=== PATIENT | female | born 1975 | race Caucasian/White ===

== ENCOUNTER 2019-03-30 17:23 | Outpatient (REF) | payer BC, SELFPAY ==
[2019-03-30 19:37] LABS: Calculated LDL 144 mg/dL; Cholesterol 199 mg/dL (50-200); Glucose 81 mg/dL (70-100); HDL Cholesterol 45 mg/dL (40-60); TSH 2.65 uIU/mL (0.36-3.74); Triglyceride 52 mg/dL (30-150)
== END 2019-03-30 17:43 ==
LOC: NCHCN 17:23
PROVIDERS: PCP Internal Medicine; Visit Provider Internal Medicine
DX: Z00.00 Encounter for general adult medical examination without abnormal findings (principal); E06.3 Autoimmune thyroiditis; E04.2 Nontoxic multinodular goiter
CPT/HCPCS: 80061; 82947; 84443

== ENCOUNTER 2020-09-16 16:26 | Outpatient (REF) | payer BC, SELFPAY ==
[2020-09-16 19:16] LABS: Glucose 77 mg/dL (74-106); TSH 1.79 uIU/mL (0.36-3.74)
== END 2020-09-16 16:27 | disposition home or self-care (01) ==
LOC: NCHCN 16:26
PROVIDERS: PCP Internal Medicine; Visit Provider Internal Medicine
DX: Z00.00 Encounter for general adult medical examination without abnormal findings (principal); E04.2 Nontoxic multinodular goiter; E66.3 Overweight
CPT/HCPCS: 82947; 84443

== ENCOUNTER 2020-10-30 13:37 | Outpatient (REF) | payer BC, SELFPAY ==
--- NOTE | 2020-10-30 13:20 | PAPFT_PTH ---
PATIENT: Francine Becerril LOC: [facility]#:[id number] AGE/SX: 45/F ROOM: RE10/30/[address]: Anca Martin : 1975 BED: DIS: 10/30/2020 SPEC #: [id number] RECD: 10/31/20 12:57 STATUS: SCHUYLER RECaitie #: [id number] PATRICK: 10/30/20 13:[address]: Anca Martin DEPT: [facility] Cytology RECD BY: Nayeli Ko ENTERED: 10/31/20 12:57 SP TYPE: PAPFT OTHR DR: Jonn Burt Tissues: 1 - CX/ENDOCX FOR PAP SMEARS Procedures: PAP THIN PREP/UVM Screening HPV DNA PROBE Comments: [id number]
== END 2020-10-30 13:38 | disposition home or self-care (01) ==
LOC: NCHCN 13:37
PROVIDERS: PCP Internal Medicine; Visit Provider Physician Assistant
DX: Z12.4 Encounter for screening for malignant neoplasm of cervix (principal); Z01.419 Encounter for gynecological examination (general) (routine) without abnormal findings; Z11.51 Encounter for screening for human papillomavirus (HPV)
CPT/HCPCS: 88142; 87624

== ENCOUNTER 2021-09-23 16:19 | Outpatient (REF) | payer BC, SELFPAY ==
[2021-09-23 18:44] LABS: Glucose 86 mg/dL (74-106); TSH 1.88 uIU/mL (0.36-3.74)
== END 2021-09-23 16:20 | disposition home or self-care (01) ==
LOC: NCHCN 16:19
PROVIDERS: PCP Internal Medicine; Visit Provider Internal Medicine
DX: Z00.00 Encounter for general adult medical examination without abnormal findings (principal)
CPT/HCPCS: 82947; 84443

== ENCOUNTER 2022-09-25 11:37 | Outpatient (REF) | payer BC, SELFPAY ==
[2022-09-25 19:18] LABS: FREE T4 1.35 ng/dL (0.76-1.46); Glucose 79 mg/dL (74-106); TSH 0.87 uIU/mL (0.36-3.74)
== END 2022-09-25 11:38 | disposition home or self-care (01) ==
LOC: NCHCN 11:37
PROVIDERS: PCP Internal Medicine; Visit Provider Internal Medicine
DX: Z00.00 Encounter for general adult medical examination without abnormal findings (principal); E06.3 Autoimmune thyroiditis; Z13.1 Encounter for screening for diabetes mellitus
CPT/HCPCS: 82947; 84439; 84443

== ENCOUNTER 2024-10-12 18:27 | Outpatient (REF) | payer BC, SELFPAY ==
[2024-10-12 19:43] LABS: Hemoglobin A1C 5.7 % (<5.7)
[2024-10-12 19:48] LABS: Calculated LDL 148 mg/dL (<100); Cholesterol 218 mg/dL (<200); HDL Cholesterol 54 mg/dL (>or=50); TSH 59.64 uIU/mL (0.36-3.74); Triglyceride 81 mg/dL (<150)
== END 2024-10-12 18:28 | disposition home or self-care (01) ==
LOC: NCHCN 18:27
PROVIDERS: PCP Internal Medicine; Visit Provider Internal Medicine
DX: E66.9 Obesity, unspecified (principal); E04.2 Nontoxic multinodular goiter
CPT/HCPCS: 80061; 83036; 84443

== ENCOUNTER 2024-12-01 20:04 | Outpatient (REF) | payer BC, SELFPAY ==
[2024-12-04 09:58] LABS: FSH 0.8 mIU/mL (See Note)
== END 2024-12-01 20:05 | disposition home or self-care (01) ==
LOC: NCHCN 20:04
PROVIDERS: PCP Internal Medicine; Visit Provider Physician Assistant
DX: E03.9 Hypothyroidism, unspecified (principal); N95.1 Menopausal and female climacteric states
CPT/HCPCS: 83001; 84443

== ENCOUNTER 2025-01-19 11:12 | Day surgery (SDC) | payer BC, SELFPAY ==
--- NOTE | 2025-01-18 20:34 | W.PM.DSUDISC ---
Date of service: 01/19/25 Discharge Plan Disposition Patient Disposition: Home Condition: Good Discharge Details Reason For Visit: screening colonoscopy Attending Provider: Tobias Ferrari Primary Care Provider: Jonn Burt Home Meds and New Rx's Prescriptions: Continued levonorgestrel-ethinyl estrad 0.15-0.03 mg tablet See Rx Instructions PO .COMPLEX Rx Instructions: take 1 tablet daily following the order on blister card(s) PO levothyroxine [Synthroid] 150 mcg tablet 150 mcg PO DAILY Discontinued bisacodyl [Dulcolax (bisacodyl)] 5 mg tablet,delayed release (DR/EC) 5 mg PO ONCE Qty: 4 0RF Rx Instructions: Take per colonoscopy instructions provided by ordering providers office polyethylene glycol 3350 17 gram/dose powder 17 g PO ONCE Qty: 238 0RF Rx Instructions: Take per colonoscopy instructions provided by ordering providers office Discharge Instructions Instructions: Colon polyps Additional Instructions: Hope, is very nice meeting you today, and I hope you are comfortable through the procedure. Everything went very smoothly. I did find, and removed, a total of 5 polyps today. All of these are extremely small, and I do not think they are anything to worry about. These will all be sent off for testing since polyps do come in different types, and we use that information to help guide the timing of future colonoscopies. Those results will take about a week or 2 to get back, but once my office has that information, we will be in touch. If you need anything else in the meantime, do not hesitate to call. 1. If tolerated, consume a soft, low fiber diet for 1-2 days. 2. Do not drive, drink alcohol, operate machinery, make critical decisions, or do activities that require coordination or balance for 24 hours. 3. Because air was put into your colon during the procedure, expelling air from your rectum (passing gas or farting) is normal. 4. You may not have a bowel movement for 1-3 days because of the colonoscopy prep. This is normal. 5. Go directly to the emergency room if you notice any of the following: Develop chills (warm to touch), or if you have a thermometer and your temperature is above 101 Difficulty breathing or difficultly swallowing Persistent vomiting Severe abdominal pain, other than gas cramps Severe chest pain Black, tarry stools Any bleeding ? exceeding one tablespoon 6. Call your physician if the site where your intravenous was started becomes red, swollen, painful, and warm to touch. 7. Your physician has reviewed your pre-procedure medications. Please continue to take those medications as previously ordered. You will be given specific information/education regarding any changes to your medications before leaving. Stand Alone Forms: Anesthesia Discharge InstRobert Lam (DSU) Activity:: Activity as Tolerated Diet:: As Tolerated Discharge Orders Discharge Orders: Discharge Order (Routine); Ordered 01/18/25 Ordered By: Tobias Ferrari DS: Diagnosis Discharge Diagnosis (1) Encounter for screening colonoscopy: Status: Acute Asessment and Plan: Follow-up on polypectomy results
--- NOTE | 2025-01-18 20:43 | COLE_ITS ---
Date of service: 01/19/25 Time of Service: 14:15 Colonoscopy Report Date of procedure: 01/19/25 Pre-op diagnosis general: screening colonoscopy Post-op diagnosis procedure note: other (Colon polyps) Procedure: colonoscopy with polypectomy Surgeon: Tobias Ferrari Anesthesia Type: General:No Airway Estimated blood loss (mL): 5 Pathology: other (0.25 cm flat polyps at 100 cm, 35 cm, 25 cm, and rectal x 2 (single specimen)) Complications: None Disposition: same day Indications: Francine is a 49 year old woman who had a positive cologuard test. She needs a follow up screening colonoscopy Prep: Miralax/Dulcolax Procedure Start Time: 13:31 Procedure End Time: 14:07 Retraction Time: 22 Findings: 0.25 cm flat polyps at 100 cm, 35 cm, 25 cm, and rectal x 2 (single specimen) Procedure Description: After the induction of anesthesia, and with the patient in left lateral decubitus position, I began by performing an external anorectal exam.? Perineum and skin were normal, as was the anal verge.? There was no evidence of external hemorrhoids.? Next, I performed a digital rectal exam.? I did not appreciate any abnormal findings.? Next, I advanced a colonoscope into the rectal vault.? I performed retroflexion.? This appeared normal.? Using irrigation, I then advanced the colonoscope beyond the rectal folds and into the sigmoid colon before advancing towards the cecum.? There are some scattered diverticula throughout the sigmoid segment.? The scope was noted to be in the cecum by identification of the ileocecal valve and appendiceal orifice.? I then began withdrawing the colonoscope using repeated irrigation as necessary for full evaluation of the colonic mucosa. Around 100 cm from the anal verge was a 0.25 cm flat polyp. This was removed with cold forceps with minimal bleeding. Flat polyps were also found at 35 cm and 25 cm from the anal verge. These were also each about 0.25 cm, and these were removed with cold forceps. ?Once the scope was withdrawn to the level of the rectum, great care was taken to examine port ions of the rectal folds. In the lower portion of the rectal vault were 2 more polyps. Each of these was about 0.25 cm. These were each removed with cold forceps and sent as a single specimen. ? Finally, the scope was withdrawn and the patient was brought to the same-day surgery recovery unit as the anesthetic wore off. The findings and instructions were shared with the patient prior to discharge. Clinton Bowel Prep Clinton Bowel Prep Right Colon: 3 Left Colon: 3 Transverse Colon: 3 Total Score: 9
[2025-01-19 11:30] VITALS: BP 139/90; PULSE 101; RESP 17; TEMP 36.3; O2SAT 96
[2025-01-19] MEDS: Lactated Ringers 1,000 ML 80 ML IV (11:45)
--- NOTE | 2025-01-19 12:03 | W.ANESPRE ---
General Info Date of Service Date Performed: 01/19/25 Height: 5 ft 4 in Weight: 74.3 kg Body Mass Index (BMI): 28.0 Surgical Procedure: Operation Date: 01/19/25 13:05 Proposed Procedure Side Surgeon p Renea Ferrari MD Meds Allergies and Home Medications Allergies Allergy/AdvReac Type Severity Reaction Status Date / Time No Known Allergies Allergy Verified 01/19/25 11:28 Home Medication ?Medication ?Instructions ?Recorded levonorgestrel 0.15 mg-ethinyl See Rx Instructions PO .COMPLEX 12/12/24 estradiol 0.03 mg tablet levothyroxine 150 mcg tablet 150 mcg PO DAILY 12/12/24 (Synthroid) Current Visit Medications: Current Medications Generic Name Dose Route Start Last Admin Trade Name Freq PRN Reason Stop Dose Admin Ringer's Solution 1,000 mls @ 80 mls/hr 01/19/25 06:00 01/19/25 11:45 IV 01/19/25 23:59 80 mls/hr INFUSION JONATHON Administration IV Miscellaneous Supplies 1 each 01/19/25 06:00 Iv Access IV 01/19/25 23:59 DIRECTED JONATHON Ondansetron HCl 4 mg 01/18/25 20:46 Ondansetron 4 Mg/2 Ml Vial IVP 02/17/25 20:45 Q4H PRN PRN Nausea / Vomiting Sodium Chloride 0 ml 01/19/25 06:00 Normal Saline Flush 10 Ml Syr IV 01/19/25 23:59 PRN PRN Sodium Chloride 0 ml 01/19/25 06:00 Normal Saline 10 Ml Vial IJ 01/19/25 23:59 DIRECTED PRN Sterile Water 0 ml 01/19/25 06:00 Water,Injection,Sterile 10 Ml Vial IJ 01/19/25 23:59 DIRECTED PRN PFSH Active Problems Active Problems: Problem Status Onset Code Encounter for screening colonoscopy Acute Z12.11 Positive colorectal cancer screening using Cologuard test Acute R19.5 Medical History Medical History Obesity Hyperlipidemia Autoimmune thyroiditis Hypothyroidism Nontoxic multinodular goiter Tobacco Smoking/Tobacco Use Status: Current-Occasional Tobacco Type: cigarettes Alcohol Alcohol Intake: current Alcohol intake frequency: 0-2 drinks per day Alcohol type: beer Substance Use Substance use type: does not use Vital Signs and Lab Results Vital Signs Most Recent Vital Signs in EMR: Most Recent Vital Signs Temp Pulse Resp BP Pulse Ox 36.3 C L 101 H 17 139/90 96 01/19/25 11:30 01/19/25 11:30 01/19/25 11:30 01/19/25 11:30 01/19/25 11:30 Anesthesia Assessment and Plan Anesthesia History Personal History: No History of General Anesthesia Family History: No Family History of Anesthesia Complications Exercise Tolerance Exercise Tolerance: Metabolic Equivalents>4 Cardiac & Pulmonary Exam Cardiac Exam: Normal S1/S2 Heart Sounds Pulmonary Exam: Clear Bilateral Breath Sounds Implantable Cardiac Device Does patient have a Pacemaker or an ICD?: No Airway Exam Known Difficult Airway: No Mallampati Class: 3 Mouth Opening: Normal (> 3cm) Thyromental Distance: Less than 3 cm Neck Range of Motion: Full ROM Neck Circumference: Normal Teeth Condition: Normal Dentition and Removable Dentures/Plates Upper ASA Classification ASA Score: ASA 2 Emergency Case?: No NPO Status NPO Status: NPO Clears >2 hours, Solids >8 hours Status Status: Negative HCG Anesthesia Plan Resuscitation Status: Full Code Anesthesia Technique: General Anesthesia Airway Planned: Natural Airway Monitors Used: Standard Monitors Preoperative Comments:: 49 yo female for colo. Sig PMHx: hypothyroid (on replacement), occ smoker, occ EtOH. Denies GERD. Approp NPO.
[2025-01-19 12:05] VITALS: BMI 28.0
--- NOTE | 2025-01-19 13:53 | BOWEL_PTH ---
PATIENT: Francine Becerril LOC: [facility] U#:[id number] AGE/SX: 49/F ROOM: RE01/19/[address]: Tobias Ferrari MD : 1975 BED: DIS: 01/19/2025 SPEC #: [id number] RECD: 01/19/25 16:57 STATUS: SCHUYLER RE #: [id number] PATRICK: 01/19/25 13:[address]: Tobias Ferrari DEPT: Surgical Specimen RECD BY: Nayeli Ko ENTERED: 01/19/25 16:58 SP TYPE: Bowel OTHR DR: Jonn Burt Tissues: 1 - BIOPSY BOWEL 2 - BIOPSY BOWEL 3 - BIOPSY BOWEL 4 - BIOPSY BOWEL Procedures: GROSS AND MICRO LEVEL 4 Comments:
--- NOTE | 2025-01-19 14:14 | W.ANESPOSTOP ---
Postoperative Evaluation Date, Time and Location Date Performed: 01/19/25 Time Performed: 14:14 Patient Location: Day Surgery Unit Vital Signs Most Recent Imported Vital Signs: Most Recent Vital Signs Temp Pulse Resp BP Pulse Ox 36.3 C L 101 H 17 139/90 96 01/19/25 11:30 01/19/25 11:30 01/19/25 11:30 01/19/25 11:30 01/19/25 11:30 Pain Score Most Recent Pain Score: Most Recent Pain Score Pain Level 0 01/19/25 11:30 Assessment Mental Status: Awake (Alert & Oriented to Patient Baseline) Airway and Respiratory Function: Patent airway with normal (patient baseline) respiratory exam Cardiovascular Function: Hemodynamically Stable Hydration Status: Adequately Hydrated Nausea & Vomiting: No Nausea or Vomiting Pain: Pt. Denies Any Pain Peripheral Nerve Block: Patient did not receive a nerve block
[2025-01-19 14:15] VITALS: BP 124/78; PULSE 85; RESP 16; TEMP 36; O2SAT 99
[2025-01-19 14:40] VITALS: BP 130/71; PULSE 78; RESP 16; TEMP 36; O2SAT 99
== END 2025-01-19 14:45 | disposition home or self-care (01) ==
LOC: SUR 11:12
PROVIDERS: PCP Internal Medicine; Visit Provider Surgery
PROC: 0DJD8ZZ Inspection of Lower Intestinal Tract, Via Natural or Artificial Opening Endoscopic (ICD-10-PCS; CPT 45378; principal; 2025-01-19 13:00)
DX: Z12.11 Encounter for screening for malignant neoplasm of colon (principal); K57.30 Diverticulosis of large intestine without perforation or abscess without bleeding; K63.5 Polyp of colon; K62.1 Rectal polyp
CPT/HCPCS: 45380; 81025; 88305; J2704

== ENCOUNTER 2025-02-27 16:24 | Outpatient (REF) | payer BC, SELFPAY ==
--- NOTE | 2025-02-27 11:30 | PAPFT_PTH ---
PATIENT: Francine Becerril LOC: [facility]#:[id number] AGE/SX: 49/F ROOM: RE02/27/[address]: Anca Martin : 1975 BED: DIS: 02/27/2025 SPEC #: [id number] RECD: 02/27/25 18:31 STATUS: SCHUYLER REQ #: [id number] PATRICK: 02/27/25 11:[address]: Anca Martin DEPT: [facility] Cytology RECD BY: Nayeli Ko ENTERED: 02/27/25 18:31 SP TYPE: PAPFT OTHR DR: Jonn Burt Tissues: 1 - CX/ENDOCX FOR PAP SMEARS Procedures: PAP THIN PREP/[facility] Screening HPV DNA PROBE Comments: [id number] (HPV 16 & 18/45)
== END 2025-02-27 16:25 | disposition home or self-care (01) ==
LOC: NCHCN 16:24
PROVIDERS: PCP Internal Medicine; Visit Provider Physician Assistant
DX: Z12.4 Encounter for screening for malignant neoplasm of cervix (principal)
CPT/HCPCS: 88142; 87624